=== PATIENT | female | born 1955 | race Caucasian/White ===

== ENCOUNTER 2018-10-23 10:34 | Day surgery (SDC) | payer BC ==
[~2018-10-23 10:34] MED LIST: Acetaminophen TAB* 325 MG PO ONE; Buffered Lidocaine 1% SYRIN* 1 ML/SYRINGE INTRADERM ONE; Lactated Ringers 1000 ML Bag* 1,000 ML IV SCH
[2018-10-23] MEDS ORDERED: Buffered Lidocaine 1% SYRIN* 1 ML/SYRINGE INTRADERM ONE (11:07)
[2018-10-23] MEDS ORDERED: Acetaminophen TAB* 325 MG ONE (11:07)
[2018-10-23] MEDS ORDERED: ceFAZolin 2 GM PREMIX in ORs 2 GM/50 ML BAG IVPB ONE (11:07)
[2018-10-23] MEDS ORDERED: Midazolam* 1 MG/ML 2 ML VIAL (2 MG) ONE (12:15)
[2018-10-23] MEDS ORDERED: fentaNYL* 50 MCG/ML 2 ML VIAL (100 MCG VIAL) ONE (12:15)
[2018-10-23] MEDS ORDERED: Famotidine IV* 10 MG/ML 2 ML (20 mg) ONE (12:57)
[2018-10-23] MEDS ORDERED: Propofol* 10 MG/ML 20 ML BTL ONE (13:03)
[2018-10-23] MEDS ORDERED: Dexamethasone IV* 4 MG/ML 1 ML (4 MG) ONE (13:03)
[2018-10-23] MEDS ORDERED: Ketorolac INJ* 30 MG/ML 1 ML VIAL ONE (13:03)
[2018-10-23] MEDS ORDERED: Ondansetron INJ* 2 MG/ML VIAL IV PRN (13:11)
[2018-10-23] MEDS ORDERED: HYDROcodone/ACETAMIN 5-325 MG* 1 TAB PO PRN (13:11)
[2018-10-23] MEDS ORDERED: PROCHLORPERAZINE INJ 5 MG/ML 2 ML VIAL IV PRN (13:11)
[2018-10-23] MEDS ORDERED: fentaNYL* 50 MCG/ML 2 ML VIAL (100 MCG VIAL) IV PRN (13:11)
[2018-10-23] MEDS ORDERED: DiMENhydriNATE IV* 50 MG/ML VIAL IV PUSH PRN (13:11)
[2018-10-23] MEDS ORDERED: Naloxone* 0.4 MG/ML 1 ML VIAL IV PRN (13:11)
[2018-10-23 13:19] LABS: Hepatitis C Antibody Nonreactive (Nonreactive)
[2018-10-23] MEDS ORDERED: Bupivacaine 0.25% SDV PF* 10 ML VIAL INJ ONE (13:27)
--- NOTE | 2018-10-23 14:04 | OP ---
Operative Report - Blank - Operative Report Date of Operation: 10/23/18 Note: PATIENT: Padmini Lamb DATE OF : 1955 DATE OF SURGERY: 10/23/2018 SURGEON: Hitesh Ramirez MD [employer] CONVERTER: JESUS Snachez, whos assistance was necessary for positioning, retraction, help with instrumentation, and closure. ANESTHESIOLOGIST: Dr. Macias PREOPERATIVE DIAGNOSIS: Left foot infection and retained foreign body POSTOPERATIVE DIAGNOSIS: Left foot infection and retained foreign body OPERATION: 1. Left foot removal of foreign body 2. Left foot irrigation and debridement ANESTHESIA: MAC IMPLANTS: none TOURNIQUET TIME: Less than 30 minutes with an ankle esmarch tourniquet SPECIMENS: Splinter to pathology. Culture swabs to micro. ESTIMATED BLOOD LOSS: minimal COMPLICATIONS: none STATUS: Stable from the operating room to the recovery room and then home INDICATIONS FOR PROCEDURE: Padmini has had recurrent left foot infections due to a retained foreign body. Both operative and non-operative treatment alternatives were reviewed. Further, the nature and risks of surgery were reviewed in careful detail. Our discussions regarding the risks of surgery included, but were not limited to, persistent or worsening infection, persistent foreign body, wound problems, nerve injury, neuroma, RSD, persistent symptoms, blood clot, need for further surgery, failure of the surgery, and even the remote chance of catastrophic complication. DESCRIPTION OF PROCEDURE: The patient was seen in the preoperative holding unit and informed written consent was obtained. The appropriate extremity was marked. The patient was then brought to the operating room and carefully positioned on the operating room table. Anesthesia was induced. All bony prominences were padded with great care. A chlorhexidine based pre-scrub was performed followed by a chloraprep prep and drape in standard sterile fashion. A surgical safety pause was then conducted in which we confirmed the appropriate patient, extremity, planned procedure, availability of equipment, indication and administration of prophylactic antibiotics, and DVT prophylaxis in the form of a compression boot on the non-surgical extremity. I used the ultrasound in the OR to localize what I thought was the foreign body. This was at the central aspect of the erythematous area on the medial left forefoot. I then made a longitudinal incision centered on this spot. I then carefully dissected down through the subcutaneous tissue, fascia, and into the deep muscle of the medial forefoot. The splinter, which was about 4 mm in length, was then encountered. It was excised and sent to pathology. There was also a surrounding pocket of pus. Culture swabs were sent from this. I then sharply excised any infected-appearing tissue using a 15 blade scalpel. Remaining tissue appeared healthy and viable, so the wound was then copiously irrigated with sterile saline. The tourniquet was then released and meticulous hemostasis obtained. The wound was then closed in layers utilizing 3-0 Monocryl and 3-0 nylon. A sterile dressing was then applied. The patient was then awakened from anesthesia and transferred to the recovery room in stable condition. There were no complications. All needle and sponge counts were correct at the end of the case. ATTESTATION: I attest I was present and scrubbed and performed the critical portions of the procedure myself. POSTOPERATIVE PLAN: She will follow up in 2 weeks for suture removal.
[2018-10-23 15:07] VITALS: BP 171/81
== END 2018-10-23 15:07 | disposition home or self-care (01) ==
LOC: OR 10:34
PROVIDERS: ATTEND Orthopaedic Surgery
DX: S91.342A Puncture wound with foreign body, left foot, initial encounter (principal); L08.89 Other specified local infections of the skin and subcutaneous tissue; W45.8XXA Other foreign body or object entering through skin, initial encounter; Y92.89 Other specified places as the place of occurrence of the external cause; E11.9 Type 2 diabetes mellitus without complications; Z79.84 Long term (current) use of oral hypoglycemic drugs; E78.5 Hyperlipidemia, unspecified
CPT/HCPCS: 36415; 86803; 87070; 87073; 87077; 87186; 87205; 88300; A9270-GY; J0690; J1100; J1885; J2250; J2704; J3010; J3490